=== PATIENT | female | born 1970 ===

== ENCOUNTER 2018-04-01 00:41 | Emergency (ER) | payer OTHER ==
[2018-04-01 00:44] VITALS: BMI 39.2
[2018-04-01] MEDS ORDERED: Sodium Chloride 0.9% 1,000 ML IV ONE (01:14)
--- NOTE | 2018-04-01 01:14 | C.PDOC ---
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 No seizure activity noted, no incontinence. Pt does not remember the event. No f/c/n/v. No visual changes, no weakness. Neuro non focal . Patient also states that she stopped taking her blood pressure medications about 3-4 days ago because it made legs swell. Time Seen by Provider: 04/01/18 01:14 Chief Complaint (Nursing): Syncope History Per: Patient, Family History/Exam Limitations: no limitations Onset/Duration Of Symptoms: Mins Current Symptoms Are (Timing): Gone Activity At Onset Of Symptoms: Had Just Stood up Associated Symptoms Preceding Syncopal Episode: No Predromal Symptoms (Sudden Onset) Seizure Or Post-ictal Symptoms: None Possible Causative Factor(s): Other (stopped bp meds 3 daysago) Fall Associated With With Symptoms: No Severity: None Recent travel outside of the [place]: No Additional History Per: Family - Symptoms Of CVA Associated Symptoms: denies: Impaired Speech, Seizure Activity, Decreased Ability To Walk, New Confusion Past Medical History Reviewed: Historical Data, Nursing Documentation, Vital Signs Vital Signs: Last Vital Signs Temp 98.6 F 04/01/18 04:38 Pulse 76 04/01/18 04:38 Resp 16 04/01/18 04:38 BP 116/70 04/01/18 04:38 Pulse Ox 99 04/01/18 04:38 - Medical History PMH: HTN Denies: Chronic Kidney Disease Surgical History: Cholecystectomy Family History: States: No Known Family Hx - Social History Hx Tobacco Use: No Hx Alcohol Use: No Hx Substance Use: No - Immunization History Hx Tetanus Toxoid Vaccination: No Hx Influenza Vaccination: No Hx Pneumococcal Vaccination: No Review Of Systems Constitutional: Negative for: Fever, Chills Eyes: Negative for: Vision Change ENT: Negative for: Throat Pain Cardiovascular: Negative for: Chest Pain Respiratory: Negative for: Shortness of Breath Gastrointestinal: Negative for: Nausea, Vomiting, Abdominal Pain Genitourinary: Negative for: Dysuria Musculoskeletal: Negative for: Neck Pain, Back Pain Skin: Negative for: Rash Neurological: Positive for: Headache (mild). Negative for: Weakness Psych: Negative for: Anxiety, Depression Physical Exam - Physical Exam Appears: Non-toxic, No Acute Distress Skin: Warm, Dry Head: Normacephalic, Other (mild occipital tenderness) Eye(s): bilateral: Normal Inspection, PERRL, EOMI Oral Mucosa: Moist Neck: No Paracervical Tenderness, Supple Chest: Symmetrical Cardiovascular: Rhythm Regular Respiratory: No Rales, No Rhonchi, No Wheezing Gastrointestinal/Abdominal: Soft, No Tenderness, No Distention Back: Normal Inspection Extremity: Normal ROM Extremity: Bilateral: Atraumatic, Normal Color And Temperature, Normal ROM Pulses: Left Carotid: Normal, Right Carotid: Normal, Left Dorsalis Pedis: Normal , Right Dorsalis Pedis: Normal Neurological/Psych: Oriented x3, Normal Speech, Normal Cognition Gait: Steady ED Course And Treatment - Laboratory Results Result Diagrams: 04/01/18 01:31 04/01/18 01:31 ECG: Interpreted By Me (65), Viewed By Me ECG Rhythm: Nonspecific Changes O2 Sat by Pulse Oximetry: 97 Pulse Ox Interpretation: Normal - Radiology CXR: Interpreted by Me, Viewed By Me Reevaluation Time: 05:08 Reassessment Condition: Improved Disposition Counseled Patient/Family Regarding: Studies Performed, Diagnosis, Need For Followup - Disposition Referrals: [facility] [Outside] [facility] [Outside] Disposition: HOME/ ROUTINE Disposition Time: 01:14 Condition: FAIR Additional Instructions: Please return if symptoms recur Instructions: Vasovagal Response (DC) Forms: [employer] (Divehi) Print Language: ITALIAN - Clinical Impression Clinical Impression: Vaso vagal episode
[2018-04-01 01:36] LABS: BASO # 0.1 K/uL (0.0-0.2); BASO % 1.4 % (0.0-2.0); EOS # 0.2 K/uL (0.0-0.7); EOS % 2.8 % (0.0-4.0); HEMOGLOBIN 14.6 g/dL (11.0-16.0); LYMPH # 1.4 K/uL (1.0-4.3); LYMPH % 15.7 % (20.0-40.0); MEAN CELL VOLUME 87.9 fL (81.0-99.0); MEAN CORPUSCULAR HEMOGLOBIN 30.4 pg (27.0-31.0); MEAN CORPUSCULAR HGB CONC 34.6 g/dL (33.0-37.0); MEAN PLATELET VOLUME 8.6 fL (7.2-11.7); MONO # 0.4 K/uL (0.0-0.8); MONO % 4.5 % (0.0-10.0); NEUT # 6.6 K/uL (1.8-7.0); NEUT % 75.6 % (50.0-75.0); NRBC % 0.1 % (0.0-2.0); RBC 4.79 Mil/uL (3.80-5.20); RED CELL DISTRIBUTION WIDTH 13.4 % (11.5-14.5); WHITE BLOOD COUNT 8.7 K/uL (4.8-10.8)
[2018-04-01 01:39] LABS: SQUAMOUS EPITHIAL < 1 /hpf (0-5); URINE BACTERIA RARE (<OCC); URINE BILIRUBIN NEGATIVE (NEGATIVE); URINE BLOOD NEGATIVE (NEGATIVE); URINE CLARITY Clear (Clear); URINE COLOR Colorless (YELLOW); URINE GLUCOSE (UA) NORMAL (Normal); URINE LEUKOCYTE ESTERASE NEG Leu/uL (Negative); URINE PROTEIN NEGATIVE (NEGATIVE); URINE UROBILINOGEN NORMAL mg/dL (0.2-1.0)
[2018-04-01 01:42] LABS: INR 1.1; PROTHROMBIN TIME 11.5 SECONDS (9.7-12.2)
[2018-04-01 01:51] LABS: HCG,QUALITATIVE URINE NEGATIVE (NEGATIVE)
[2018-04-01 02:09] LABS: ALB/GLOB RATIO 1.2 (1.0-2.1); ALBUMIN 4.9 g/dL (3.5-5.0); ALT/SGPT 29 U/L (9-52); AST/SGOT 35 U/L (14-36); BLOOD UREA NITROGEN 10 mg/dL (7-17); CALCIUM 9.1 mg/dl (8.6-10.4); GFR AFRICAN-AMERICAN > 60; GFR NON-AFRICAN AMERICAN > 60
--- NOTE | 2018-04-01 03:42 | CT ---
EXAM: CT Cervical Spine Without Intravenous Contrast CLINICAL HISTORY: 47 years old, female; Injury or trauma; Fall; Initial encounter; Swelling TECHNIQUE: Axial computed tomography images of the cervical spine without intravenous contrast. All CT scans at this facility use one or more dose reduction techniques, viz.: automated exposure control; ma/kV adjustment per patient size (including targeted exams where dose is matched to indication; i.e. head); or iterative reconstruction technique. Coronal and sagittal reformatted images were created and reviewed. COMPARISON: No relevant prior studies available. FINDINGS: Vertebrae: There is kyphosis of the cervical spine. No acute fracture. No dislocation. Discs/spinal canal/neural foramina: There are mild degenerative changes present with small posterior endplate spurs at multiple levels. There are large anterior osteophytes at C5-6 and C6-7. No no significant spinal canal or neuroforaminal stenosis. Soft tissues: Unremarkable. Lung apices: Unremarkable as visualized. IMPRESSION: No acute fracture or dislocation. Degenerative changes.
--- NOTE | 2018-04-01 04:16 | CT ---
EXAM: CT Head Without Intravenous Contrast CLINICAL HISTORY: 47 years old, female; Injury or trauma; Fall; Initial encounter; Concussion / head injury; With loss of consciousness; Not specified; Additional info: Syncope TECHNIQUE: Axial computed tomography images of the head/brain without intravenous contrast. All CT scans at this facility use one or more dose reduction techniques, viz.: automated exposure control; ma/kV adjustment per patient size (including targeted exams where dose is matched to indication; i.e. head); or iterative reconstruction technique. COMPARISON: No relevant prior studies available. FINDINGS: Brain: Unremarkable. No hemorrhage. No significant white matter disease. No edema. Ventricles: Unremarkable. No ventriculomegaly. Bones/joints: Unremarkable. No acute fracture. Soft tissues: Unremarkable. Sinuses: Unremarkable as visualized. No acute sinusitis. Mastoid air cells: Unremarkable as visualized. No mastoid effusion. IMPRESSION: No evidence of an acute intracranial abnormality.
[2018-04-01 04:39] VITALS: BP 116/70; PULSE 76; RESP 16; TEMP 98.6
[2018-04-01 05:12] VITALS: O2SAT 97
--- NOTE | 2018-04-02 12:10 | CARD ---
APPROVED REPORT EKG Measurement Heart [id number] <Conclusion> Normal sinus rhythm Nonspecific T wave abnormality Abnormal ECG
== END 2018-04-01 05:21 | disposition home or self-care (01) ==
LOC: C.ER 00:41
DX: R55 Syncope and collapse (principal); I10 Essential (primary) hypertension
CPT/HCPCS: 70450; 72125; 80053; 80320; 81001; 84484; 84703; 85025; 85610; 85730; 93005; 96361; 96374; 99285; J1885; J7040

== ENCOUNTER 2019-01-10 09:59 | Emergency (ER) | payer OTHER ==
[2019-01-10 09:59] VITALS: BMI 39.2
--- NOTE | 2019-01-10 10:23 | C.PDOC ---
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 PS ACCID SLIP AND FELL ONTO ARM. +SWELLING, BRUISING. DENIES OTHER ASSOC SX EXAM NONTOXIC NAD HEENT ATRAUM EXT RUE +SWELLING W ECHYMOSIS DISTAL FOREARM. FULL SUPINATE/PRONATE WO DIFF. R WRIST AROM WO DIFF NEURO INTACT SKIN +ABRASION R FOREARM NO ACTIVE BLEED NO GROSS FB REMAIDNER NEG <Sue Rosales - Last Filed: 01/10/19 11:10> History Per: Patient History/Exam Limitations: no limitations Onset/Duration Of Symptoms: Hrs Current Symptoms Are (Timing): Still Present Severity: Moderate <BobbySue - Last Filed: 01/10/19 11:10> <Nirali Hayden - Last Filed: 01/12/19 16:22> Time Seen by Provider: 01/10/19 10:21 Chief Complaint (Nursing): Upper Extremity Problem/Injury Past Medical History Reviewed: Historical Data, Nursing Documentation, Vital Signs - Medical History PMH: HTN Denies: Chronic Kidney Disease Surgical History: Cholecystectomy Family History: States: No Known Family Hx - Social History Hx Tobacco Use: No Hx Alcohol Use: No Hx Substance Use: No - Immunization History Hx Tetanus Toxoid Vaccination: No Hx Influenza Vaccination: No Hx Pneumococcal Vaccination: No <Sue Rosales - Last Filed: 01/10/19 11:10> Vital Signs: Last Vital Signs Temp 97.8 F 01/10/19 10:21 Pulse 66 01/10/19 10:21 Resp 18 01/10/19 10:21 BP 123/81 01/10/19 10:21 Pulse Ox 96 01/10/19 10:21 <Nirali Hayden - Last Filed: 01/12/19 16:22> Review Of Systems Except As Marked, All Systems Reviewed And Found Negative. Musculoskeletal: Positive for: Arm Pain (right forearm pain) Neurological: Negative for: Weakness, Numbness <Sue Rosales - Last Filed: 01/10/19 11:10> Physical Exam - Physical Exam Appears: Non-toxic, No Acute Distress Skin: Normal Color, Warm, Dry, Ecchymosis (ecchymosis to right distal forearm), Other (abrasion to right forearm, no active bleeding, no gross foreign body) Head: Atraumatic, Normacephalic Eye(s): bilateral: Normal Inspection Extremity: Normal ROM (full supination and pronation without difficulty in right arm, AROM in right wrist w/o difficulty), Swelling (swelling to RUE) Neurological/Psych: Oriented x3, Normal Speech, Normal Motor, Normal Sensation <Sue Rosales Last Filed: 01/10/19 11:10> ED Course And Treatment - Other Rad r wrist X-Ray: Interpreted by Me (neg) R FOREARM X-Ray: Interpreted by Me (NEG) <Sue Rosales Last Filed: 01/10/19 11:10> Medical Decision Making Medical Decision Making: Plan: --Motrin PO --Tylenol PO --X-Ray-Right Wrist --X-Ray-Right Forearm <Sue Rosales Filed: 01/10/19 11:10> Medical Decision Making: PATIENT WAS CALLED BACK AFTER DISCHARGE. RADIOLOGIST SEE A POSSIBLE FRACTURE IN THE WRIST. PATIENT STATES SHE WILL RETURN TO THE ED TODAY TO BE RE-EVALUATED. <Nirali Hayden - Last Filed: 01/12/19 16:22> Disposition Counseled Patient/Family Regarding: Studies Performed, Diagnosis, Need For Followup - Disposition Disposition Time: 10:53 <Sue Rosales Last Filed: 01/10/19 11:10> <Nirali Hadyen - Last Filed: 01/12/19 16:22> - Disposition Referrals: [facility] [Outside] [facility] [Outside] [facility] [Other] Disposition: HOME/ ROUTINE Condition: IMPROVED Prescriptions: Naproxen 250 mg PO BID #30 tablet Instructions: Wrist Sprain (DC), Contusion (DC) Forms: [employer] (Chinese), Work Excuse Print Language: KOREAN - Clinical Impression Clinical Impression: Forearm contusion, Forearm sprain, Abrasion - Scribe Statement The provider has reviewed the documentation as recorded by the Bi Yanez Provider Attestation: All medical record entries made by the Prestonibdelmar were at my direction and personally dictated by me. I have reviewed the chart and agree that the record accurately reflects my personal performance of the history, physical exam, medical decision making, and the department course for this patient. I have also personally directed, reviewed, and agree with the discharge instructions and disposition. <Sue Rosales - Last Filed: 01/10/19 11:10>
[2019-01-10 10:30] VITALS: BP 123/81; PULSE 66; RESP 18; TEMP 97.8; O2SAT 96
--- NOTE | 2019-01-10 11:09 | RAD ---
Date of service: 01/10/2019 PROCEDURE: Right Wrist Radiographs. HISTORY: TRAUMA COMPARISON: None. FINDINGS: BONES: Where most of the soft tissue edema is present along the distal forearm, no radial or ulnar fracture is seen. Distal to this on series 1, image 1 a radial lucency over the 4th metacarpal base is noted here a nondisplaced trabecular microfracture is a consideration no displaced fracture seen. This appearance of the 4th metacarpal is difficult to reproduce or appreciated on the additional images of varying projections however. JOINTS: No dislocation. SOFT TISSUES: Soft tissue swelling most pronounced over the ulnar side of the distal forearm on this exam (yet projecting more radial sided on the right forearm exam and projecting dorsally on the lateral right wrist exam. OTHER FINDINGS: None. IMPRESSION: Where the soft tissue swelling is no radial or ulnar fracture is seen. Distal to the soft tissue swelling site a possible nondisplaced 4th metacarpal base trabecular microfracture is possible. An unusually prominent trabecular marking of the fracture can also simulate this. Clinical correlation recommended. Comments: Study marked for PA review .
--- NOTE | 2019-01-10 11:11 | RAD ---
PROCEDURE: Radiographs of the Right Forearm HISTORY: TRAUMA COMPARISON: None available. TECHNIQUE: Frontal and lateral views obtained. FINDINGS: BONES: No fracture or destructive lesion. JOINT SPACES: Unremarkable. OTHER FINDINGS: Soft tissue swelling borders the distal radius on this forearm ((on the wrist was more ulnar-sided). The soft tissue swelling and edema is most pronounced over the dorsal aspect of the distal forearm as well on both studies. IMPRESSION: Ulnar or radial fracture seen. Soft tissue swelling Comments: Study marked for PA review .
== END 2019-01-10 11:02 | disposition home or self-care (01) ==
LOC: C.ER 09:59
DX: S50.11XA Contusion of right forearm, initial encounter (principal); S63.501A Unspecified sprain of right wrist, initial encounter; S50.811A Abrasion of right forearm, initial encounter; W01.0XXA Fall on same level from slipping, tripping and stumbling without subsequent striking against object, initial encounter

== ENCOUNTER 2019-01-12 19:59 | Emergency (ER) | payer OTHER ==
[2019-01-12 20:00] VITALS: BMI 39.2
--- NOTE | 2019-01-12 21:12 | C.PDOC ---
History Of Present Illness 48 y/o female pt presents to the ER c/o injury of right forearm. Pt was seen her on 01/10 and was called back to the ER for questionable fx of the base of the metacarpal bone. Pt reports minimal pain to the area and has no other complaints or associated sx at this time. Time Seen by Provider: 01/12/19 20:21 Chief Complaint (Nursing): Upper Extremity Problem/Injury History Per: Patient History/Exam Limitations: no limitations Onset/Duration Of Symptoms: Days Current Symptoms Are (Timing): Still Present Past Medical History Reviewed: Historical Data, Nursing Documentation, Vital Signs Vital Signs: Last Vital Signs Temp 98.3 F 01/12/19 20:12 Pulse 67 01/12/19 20:12 Resp 20 01/12/19 20:12 BP 142/82 01/12/19 20:12 Pulse Ox 96 01/12/19 20:12 - Medical History PMH: HTN Surgical History: Cholecystectomy Family History: States: Unknown Family Hx - Social History Hx Tobacco Use: No Hx Alcohol Use: No Hx Substance Use: No - Immunization History Hx Tetanus Toxoid Vaccination: No Hx Influenza Vaccination: No Hx Pneumococcal Vaccination: No Review Of Systems Except As Marked, All Systems Reviewed And Found Negative. Constitutional: Negative for: Fever, Chills Musculoskeletal: Positive for: Other (right forearm pain and injury ) Neurological: Negative for: Weakness, Numbness Physical Exam - Physical Exam Appears: Non-toxic, No Acute Distress Skin: Warm, Dry Head: Normacephalic Eye(s): bilateral: Normal Inspection Extremity: Normal ROM (FROM), Capillary Refill (<2 sec ), No Deformity, No Swelling, Other (minimal pain to area; ecchymosis to the forearm ) Pulses: Right Radial: Normal Neurological/Psych: Oriented x3, Normal Speech, Normal Cognition, Normal Motor, Normal Sensation ED Course And Treatment O2 Sat by Pulse Oximetry: 96 (RA) Pulse Ox Interpretation: Normal - Other Rad Right hand X-Ray: Read By Radiologist Interpretation: no fx Progress Note: Plans: -- right hand XR. due to no official reading available, splint was ordered and pt was instructed to f/u with orthopedics Disposition - Disposition Referrals: Getachew Lloyd III, MD [Staff Provider] - [facility] [Outside] Disposition: HOME/ ROUTINE Disposition Time: 21:12 Condition: STABLE Additional Instructions: Follow up with PMD and Orthopedist within 1-2 days. Return to ED if feel worse. 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 - Scribe Statement The provider has reviewed the documentation as recorded by the Bi Gary Do All medical record entries made by the Scribe were at my direction and personally dictated by me. I have reviewed the chart and agree that the record accurately reflects my personal performance of the history, physical exam, medical decision making, and the department course for this patient. I have also personally directed, reviewed, and agree with the discharge instructions and disposition.
[2019-01-12 21:25] VITALS: BP 130/78; PULSE 68; RESP 18; TEMP 98.4
[2019-01-12 21:39] VITALS: O2SAT 96
--- NOTE | 2019-01-13 14:17 | RAD ---
PROCEDURE: Right Hand Radiographs. HISTORY: Questionable fracture of the base of 4th metacarpal bone COMPARISON: None. FINDINGS: BONES: Previously noted slight irregular linear lucency which was seen over the base of the 4th metacarpal possibly represent a and a nondisplaced fractures not well delineated on this exam. This could have represented artifact or vascular groove. Follow-up MRI could be performed for further evaluation if indicated. JOINTS: Normal. No osteoarthritic changes. SOFT TISSUES: There is persistent but slightly improved soft tissue swelling distal forearm. OTHER FINDINGS: None. IMPRESSION: Previously noted slight irregular linear lucency which was seen over the base of the 4th metacarpal possibly represent a and a nondisplaced fractures not well delineated on this exam. This could have represented artifact or vascular groove. Follow-up MRI could be performed for further evaluation if indicated. There is persistent but slightly improved soft tissue swelling distal forearm.
== END 2019-01-12 21:24 | disposition home or self-care (01) ==
LOC: C.ER 19:59
DX: S63.501D Unspecified sprain of right wrist, subsequent encounter (principal); X58.XXXD Exposure to other specified factors, subsequent encounter

== ENCOUNTER → 2019-01-26 | Outpatient (CLI) | payer SELFPAY | LOC: C.MAMMO 08:28 | DX: Z12.31 Encounter for screening mammogram for malignant neoplasm of breast (principal); Z12.11 Encounter for screening for malignant neoplasm of colon; I10 Essential (primary) hypertension ==